=== PATIENT | male | born 1970 | race African-American/Black ===

== ENCOUNTER 2016-10-11 12:10 | Emergency (ER) | payer BC ==
--- NOTE | ~2016-10-11 | CT98 ---
[facility] [facility] [place] [facility] RADIOLOGY TEXT RESULTS PATIENT: GREGORIO SILVERMAN LOCATION: SED : 68 UNIT #: [id number] AGE: [address]: Cornelio Masters MD SEX: M ORDER DR: [id number] [place] [id number] E MR#: [id number] Acc #: [id number] NAME: GREGORIO SILVERMAN : 1970 SEX: M STUDY DATE/TIME: 10/11/2016 12:53 UNIT: SED ROOM: STUDY DESCRIPTION: CT Lumbar Spine Wo Cont Attending Physician: Cornelio Masters M.D. Ordering Physician: Cornelio Masters M.D. MEDICAL IMAGING REPORT This report is preliminary unless electronic signature is present. EXAM CT of the lumbar spine without contrast dated 10/11/2016 COMPARISON None HISTORY Low back pain for 3 days. Patient has a hard time walking today. TECHNIQUE This CT exam was performed with one or more of the following radiation dose reduction techniques: automatic exposure control, adjustment of mA and/or kV according to patient size, and iterative reconstruction. FINDINGS CT of the lumbar spine was obtained without contrast in the axial plane followed by sagittal and coronal reformats. No acute fracture or subluxation. Anterior endplate osteophytes are at multiple levels. Intervertebral disc heights are intact. Pre and paravertebral soft tissues do not demonstrate any significant abnormality. SI joint arthritic changes are noted bilaterally particularly in the right with prominent osteophytes and some sclerotic changes in the anterior aspect of the right SI joint space. T11-12: Disc osteophyte complex with mild bilateral facet changes. No canal stenosis or neural foraminal narrowing. T12-L1: Unremarkable. L1-2: Unremarkable. L2-3: Concentric disc bulge with superimposed bilateral foraminal to extraforaminal broad-based protrusions and mild inferior bilateral neural [place] [facility] [place] of [facility] RADIOLOGY TEXT RESULTS PATIENT: GREGORIO SILVERMAN LOCATION: SED : [birth year] UNIT #: [id number] AGE: [address]: Cornelio Masters MD SEX: M ORDER DR: foraminal narrowing with mild canal stenosis. No significant neural foraminal narrowing. L3-4: Disc osteophyte complex which is asymmetrically prominent in bilateral foraminal to extraforaminal regions suggestive of superimposed broad-based protrusions. Mild bilateral neural foraminal narrowing is seen with [id number] canal stenosis. L4-5: Moderate disc bulge with superimposed bilateral foraminal to extraforaminal broad-based protrusions, worse on the left. There is mild to moderate right and moderate left neural foraminal narrowing. Limpwcmc-dl-fxkmls canal stenosis is seen with mild bilateral lateral recess stenosis. L5-S1: Concentric disc bulge with mild inferior bilateral neural foraminal encroachment. No canal stenosis. IMPRESSION 1. No acute fracture or subluxation. 2. Degenerative changes are at multiple levels, relatively worse at L3-4 and L4-5. 3. Right SI joint severe arthritic changes. Dictated by... Lani Gray M.D. THIS IS AN ELECTRONICALLY VERIFIED REPORT Lani Gray M.D. at 10/12/2016 3:23 PM CPR/cyn TD: 10/11/2016 15:04 JOB #: [id number] MEDICAL IMAGING REPORT Page 1 of 1
[~2016-10-11 12:10] MED LIST: FLEXERIL10 MG PO; NAPROXEN PO; NO MEDICATIONS
== END 2016-10-11 14:13 | disposition home or self-care (01) ==
LOC: SED 12:10
DX: M54.16 Radiculopathy, lumbar region (principal); Z98.890 Other specified postprocedural states
CPT/HCPCS: 72131; 96372; 99284; J1885

== ENCOUNTER 2016-12-15 18:40 | Emergency (ER) | payer BC | END 2016-12-15 20:10 | disposition home or self-care (01) | LOC: SED 18:40 | DX: M54.41 Lumbago with sciatica, right side (principal); R03.0 Elevated blood-pressure reading, without diagnosis of hypertension | CPT/HCPCS: 96372; 99283; J1885; J2360 ==